=== PATIENT | female | born 1985 | race African-American/Black ===

== ENCOUNTER 2016-10-25 18:24 | Emergency (ER) | payer SELFPAY ==
[~2016-10-25] VITALS: Ht 154.9 cm; Wt 61.2 kg
[2016-10-25] MEDS ORDERED: ONDANSETRON PF 4 MG/2 ML VIAL. IV ONE (19:15)
[2016-10-25] MEDS ORDERED: MORPHINE SULFATE 10 MG/ML VIAL. IV ONE (19:15)
[2016-10-25] MEDS ORDERED: FAMOTIDINE 20 MG/2 ML VIAL IVP ONE (19:15)
[2016-10-25] MEDS ORDERED: IV NORMAL SALINE 1000ML BAG 1,000 ML IV ONE (19:15)
[2016-10-25 19:16] LABS: BASO # 0.1 x10^3/uL (0.0-0.2); BASO % 1 % (0-3); EOS % 3 % (0-3); HEMATOCRIT 40.8 % (36.0-47.0); HEMOGLOBIN 13.8 g/dL (12.0-15.5); LYMPH # 1.9 x10^3/uL (1.0-4.8); LYMPH % 26 % (24-48); MEAN CORPUSCULAR HEMOGLOBIN 33 pg (25-35); MEAN CORPUSCULAR HGB CONC 34 g/dL (31-37); MEAN CORPUSCULAR VOLUME 98 fL (79-100); MONO % 4 % (0-9); NEUT % 66 % (31-73); PLATELET COUNT 354 x10^3/uL (140-400); RED BLOOD COUNT 4.17 x10^6/uL (3.50-5.40); RED CELL DISTRIBUTION WIDTH 12.9 % (11.5-14.5); WHITE BLOOD COUNT 7.4 x10^3/uL (4.0-11.0)
[2016-10-25 19:26] LABS: CALCIUM 8.7 mg/dL (8.5-10.1); CREATININE 0.9 mg/dL (0.6-1.0); GFR 89.6; POTASSIUM 3.7 mmol/L (3.5-5.1)
[2016-10-25 19:32] LABS: ALBUMIN 3.5 g/dL (3.4-5.0); TOTAL BILIRUBIN 0.3 mg/dL (0.2-1.0); TOTAL PROTEIN 6.9 g/dL (6.4-8.2)
[2016-10-25 19:44] LABS: BILIRUBIN,URINE NEGATIVE (NEG); GLUCOSE,URINE NEGATIVE (NEG); NITRITE,URINE NEGATIVE (NEG); PROTEIN,URINE NEGATIVE (NEG-TRACE); UROBILINOGEN,URINE 0.2 mg/dL (0.2 mg/dL)
--- NOTE | 2016-10-25 19:52 | PHYS DOC ---
Past Medical History Past Medical History: Anxiety, Other Additional Past Medical Histor: CHRONIC BACK Past Surgical History: Appendectomy, Cholecystectomy Additional Past Surgical Histo: cyst removed from ovary Alcohol Use: None Drug Use: None Adult General Chief Complaint Chief Complaint: ABDOMINAL PAIN HPI HPI Patient is a 30 year old female with history of cholecystectomy, appendectomy, who presents today with nausea vomiting and diarrhea that began 3 days ago. Patient is also complaining of generalized abdominal pain. Patient denies any hematemesis or melena. Denies any fever. Denies any urgency frequency or dysuria. Review of Systems Review of Systems Constitutional: Denies fever or chills [] Eyes: Denies change in visual acuity, redness, or eye pain [] HENT: Denies nasal congestion or sore throat [] Respiratory: Denies cough or shortness of breath [] Cardiovascular: No additional information not addressed in HPI [] GI: abdominal pain, nausea, vomiting, diarrhea [] : Denies dysuria or hematuria [] Musculoskeletal: Denies back pain or joint pain [] Integument: Denies rash or skin lesions [] Neurologic: Denies headache, focal weakness or sensory changes [] Endocrine: Denies polyuria or polydipsia [] Current Medications Current Medications Current Medications Medications (Trade) Dose Ordered Sig/Jaky Start Time Stop Time Status Last Admin Dose Admin Azithromycin (Zithromax) 1,000 mg 1X ONCE 10/25/16 20:15 10/25/16 20:16 DC Ceftriaxone Sodium (Rocephin Im) 250 mg 1X ONCE 10/25/16 20:30 10/25/16 20:31 DC Famotidine (Pepcid) 20 mg 1X ONCE 10/25/16 19:15 10/25/16 19:16 DC 10/25/16 19:20 20 MG Metronidazole (Flagyl) 2,000 mg 1X ONCE 10/25/16 20:15 10/25/16 20:16 DC Morphine Sulfate 5 mg 1X ONCE 10/25/16 19:15 10/25/16 19:16 DC 10/25/16 19:22 5 MG Ondansetron HCl (Zofran) 4 mg 1X ONCE 10/25/16 19:15 10/25/16 19:16 DC 10/25/16 19:19 4 MG Sodium Chloride 1,000 ml @ 1,000 mls/hr 1X ONCE 10/25/16 19:15 10/25/16 20:14 DC 10/25/16 19:23 1,000 MLS/HR Allergies Allergies Allergies Coded Allergies Type Severity Reaction Last Updated Verified No Known Drug Allergies 02/18/14 No Physical Exam Physical Exam Constitutional: Well developed, well nourished, no acute distress, non-toxic appearance. [] HENT: Normocephalic, atraumatic, bilateral external ears normal, oropharynx moist, no oral exudates, nose normal. [] Eyes: PERRLA, EOMI, conjunctiva normal, no discharge. [] Neck: Normal range of motion, no tenderness, supple, no stridor. [] Cardiovascular:Heart rate regular rhythm, no murmur [] Lungs & Thorax: Bilateral breath sounds clear to auscultation [] Abdomen: Old healed midline surgical scar. Bowel sounds normal, soft, no tenderness, no masses, no pulsatile masses. [] Skin: Warm, dry, no erythema, no rash. [] Back: No tenderness, no CVA tenderness. [] Extremities: No tenderness, no cyanosis, no clubbing, ROM intact, no edema. [] Neurologic: Alert and oriented X 3, normal motor function, normal sensory function, no focal deficits noted. [] Psychologic: Affect normal, judgement normal, mood normal. [] Current Patient Data Vital Signs Vital Signs Date Time Temp Pulse Resp B/P (MAP) Pulse Ox O2 Delivery O2 Flow Rate FiO2 10/25/16 19:22 18 97 Room Air 10/25/16 18:41 98.6 76 127/82 (97) 98.6 Lab Values Laboratory Tests Test 10/25/16 18:37 10/25/16 19:05 Urine Collection Type Unknown Urine Color Yellow Urine Clarity Turbid Urine pH 7.0 Urine Specific [place] 1.025 Urine Protein Negative mg/dL (NEG-TRACE) Urine Glucose (UA) Negative mg/dL (NEG) Urine Ketones (Stick) Negative mg/dL (NEG) Urine Blood Negative (NEG) Urine Nitrite Negative (NEG) Urine Bilirubin Negative (NEG) Urine Urobilinogen Dipstick 0.2 mg/dL (0.2 mg/dL) Urine Leukocyte Esterase Moderate (NEG) Urine RBC 0 /HPF (0-2) Urine WBC 1-4 /HPF (0-4) Urine Squamous Epithelial Cells Mod /LPF Urine Amorphous Sediment Present /HPF Urine Bacteria Mod /HPF (0-FEW) Urine Mucus Mod /LPF Urine Trichomonas Present White Blood Count 7.4 x10^3/uL (4.0-11.0) Red Blood Count 4.17 x10^6/uL (3.50-5.40) Hemoglobin 13.8 g/dL (12.0-15.5) Hematocrit 40.8 % (36.0-47.0) Mean Corpuscular Volume 98 fL (79-100) Mean Corpuscular Hemoglobin 33 pg (25-35) Mean Corpuscular Hemoglobin Concent 34 g/dL (31-37) Red Cell Distribution Width 12.9 % (11.5-14.5) Platelet Count 354 x10^3/uL (140-400) Neutrophils (%) (Auto) 66 % (31-73) Lymphocytes (%) (Auto) 26 % (24-48) Monocytes (%) (Auto) 4 % (0-9) Eosinophils (%) (Auto) 3 % (0-3) Basophils (%) (Auto) 1 % (0-3) Neutrophils # (Auto) 4.9 x10^3uL (1.8-7.7) Lymphocytes # (Auto) 1.9 x10^3/uL (1.0-4.8) Monocytes # (Auto) 0.3 x10^3/uL (0.0-1.1) Eosinophils # (Auto) 0.2 x10^3/uL (0.0-0.7) Basophils # (Auto) 0.1 x10^3/uL (0.0-0.2) Sodium Level 142 mmol/L (136-145) Potassium Level 3.7 mmol/L (3.5-5.1) Chloride Level 107 mmol/L (98-107) Carbon Dioxide Level 28 mmol/L (21-32) Anion Gap 7 (6-14) Blood Urea Nitrogen 15 mg/dL (7-20) Creatinine 0.9 mg/dL (0.6-1.0) Estimated GFR (Cockcroft-Gault) 89.6 BUN/Creatinine Ratio 17 (6-20) Glucose Level 132 mg/dL (70-99) H Calcium Level 8.7 mg/dL (8.5-10.1) Total Bilirubin 0.3 mg/dL (0.2-1.0) Aspartate Amino Transferase (AST) 14 U/L (15-37) L Alanine Aminotransferase (ALT) 26 U/L (14-59) Alkaline Phosphatase 70 U/L (46-116) Total Protein 6.9 g/dL (6.4-8.2) Albumin 3.5 g/dL (3.4-5.0) Albumin/Globulin Ratio 1.0 (1.0-1.7) Lipase 172 U/L (73-393) Laboratory Tests 10/25/16 19:05 Laboratory Tests 10/25/16 19:05 EKG EKG [] Radiology/Procedures Radiology/Procedures [] Course & Med Decision Making Course & Med Decision Making Pertinent Labs and Imaging studies reviewed. (See chart for details) Patient is in the ED with complaints of abdominal pain generalized in nature with nausea vomiting and diarrhea that began 3 days ago. CBC CMP lipase with no acute findings. Symptoms are likely viral. Negative urine hCG, urine positive for Trichomonas and UTI. Patient was given Flagyl Rocephin and azithromycin in the ED. Educated onset sex practices especially the need to use protection and contact her partners let them know she was treated for STDs and ask them to seek treatment too, discharged with Bactrim for UTI. Discharged with promethazine and instructed to push fluids and maintain good hand hygiene. Follow-up with PCP in 1-2 weeks. Provided return precautions and discharged in stable condition. Dragon Disclaimer Dragon Disclaimer This electronic medical record was generated, in whole or in part, using a voice recognition dictation system. Departure Departure Impression: Primary Impression: Nausea and vomiting Additional Impressions: Diarrhea Urinary tract infection Trichomonas vaginitis Disposition: 01 HOME, SELF-CARE Condition: STABLE Referrals: AURA SAINI MD (PCP) Follow-up in one week Patient Instructions: Diarrhea, Nausea and Vomiting, [id number], Trichomoniasis, Urinary Tract Infection Additional Instructions: You were seen for nausea vomiting and diarrhea. This is typically a viral illness. You tested positive for Trichomonas, this is an STD. You need to contact all your sex partners, let them know you were treated for Trichomonas and let them seek treatment. Complete your antibiotics for urinary tract infection. Push fluids and maintain good hand hygiene. Scripts Sulfamethoxazole/Trimethoprim (BACTRIM DS TABLET) 1 Each Tablet 1 TAB PO BID, #10 TAB Prov: DEE DEE SARABIA APRN 10/25/16 Promethazine Hcl (PROMETHAZINE HCL) 25 Mg Tablet 1 TAB PO PRN Q6HRS, #20 TAB Prov: DEE DEE SARABIA APRN 10/25/16 Problem Qualifiers Primary Impression: Nausea and vomiting Vomiting type: unspecified Vomiting Intractability: non-intractable Qualified Codes: R11.2 - Nausea with vomiting, unspecified Additional Impressions: Diarrhea Diarrhea type: unspecified type Qualified Codes: R19.7 - Diarrhea, unspecified Urinary tract infection Urinary tract infection type: acute cystitis Hematuria presence: without hematuria Qualified Codes: N30.00 - Acute cystitis without hematuria DEE DEE SARABIA APRN October 25, 2016 19:52
[2016-10-25 20:03] LABS: BACTERIA,URINE MOD /HPF (0-FEW); RBC,URINE 0 /HPF (0-2); SQUAMOUS EPITHELIAL CELL,UR MOD /LPF; TRICHOMONAS,URINE PRESENT
[2016-10-25] MEDS ORDERED: metroNIDAZOLE 500 MG TABLET PO ONE (20:15)
[2016-10-25] MEDS ORDERED: AZITHROMYCIN 250 MG TABLET. PO ONE (20:15)
[2016-10-25 20:30] VITALS: BP 100/65
[2016-10-25] MEDS ORDERED: cefTRIAXone IM 250 MG VIAL IM ONE (20:30)
[2016-10-25] MEDS ORDERED: PROM25TA10 PO (20:48)
[2016-10-25] MEDS ORDERED: SULF1TAB24 PO (20:48)
== END 2016-10-25 21:05 | disposition home or self-care (01) ==
LOC: ER 18:24
DX: R11.2 Nausea with vomiting, unspecified (principal); R19.7 Diarrhea, unspecified; N30.00 Acute cystitis without hematuria; A59.01 Trichomonal vulvovaginitis; F41.9 Anxiety disorder, unspecified; G89.29 Other chronic pain; Z90.49 Acquired absence of other specified parts of digestive tract
CPT/HCPCS: 36415; 80053; 81001; 81025; 83690; 85027; 96361; 96372; 96374; 96375; 99285; J0696; J2270; J2405; J7030; Q0144; S0028

== ENCOUNTER 2016-11-14 20:30 | Emergency (ER) | payer SELFPAY ==
[~2016-11-14] VITALS: Ht 154.9 cm; Wt 61.2 kg
[~2016-11-14 20:30] MED LIST: PROM25TA10 PO; SULF1TAB24 PO
[2016-11-14 20:49] VITALS: BP 111/70
[2016-11-14] MEDS ORDERED: HYDR-79 PO (21:20)
[2016-11-14] MEDS ORDERED: SULF1TAB24 PO (21:20)
--- NOTE | 2016-11-14 21:20 | PHYS DOC ---
Past Medical History Past Medical History: Anxiety, Other Additional Past Medical Histor: CHRONIC BACK Past Surgical History: Appendectomy, Cholecystectomy Additional Past Surgical Histo: cyst removed from ovary Alcohol Use: None Drug Use: None Adult General Chief Complaint Chief Complaint: SKIN RASH/ABSCESS HPI HPI Patient is a 30 year old female with history of anxiety who presents with a swollen area on the left flank region that she noted this morning. Patient denies any fever. Denies any drainage from the area. Review of Systems Review of Systems Constitutional: Denies fever or chills [] Musculoskeletal: Denies back pain or joint pain [] Integument: Swelling to the left flank Neurologic: Denies headache, focal weakness or sensory changes [] Endocrine: Denies polyuria or polydipsia [] Allergies Allergies Allergies Coded Allergies Type Severity Reaction Last Updated Verified No Known Drug Allergies 02/18/14 No Physical Exam Physical Exam Constitutional: Well developed, well nourished, no acute distress, non-toxic appearance. [] Skin: Left flank region has an indurated area approximately 5 x 5 cm. The area is not warm but it is tender to touch but not fluctuant. There is no erythema to the area. Back: No tenderness, no CVA tenderness. [] Extremities: No tenderness, no cyanosis, no clubbing, ROM intact, no edema. [] Neurologic: Alert and oriented X 3, normal motor function, normal sensory function, no focal deficits noted. [] Psychologic: Affect normal, judgement normal, mood normal. [] Current Patient Data Vital Signs Vital Signs Date Time Temp Pulse Resp B/P (MAP) Pulse Ox O2 Delivery O2 Flow Rate FiO2 11/14/16 20:49 98.3 67 18 100 Room Air 98.3 EKG EKG [] Radiology/Procedures Radiology/Procedures [] Course & Med Decision Making Course & Med Decision Making Pertinent Labs and Imaging studies reviewed. (See chart for details) Patient has a swollen area on the left flank region. It's hard to tell if this is an abscess or hematoma or lipoma. She has no injury to the area. The area is swollen and tender to touch but not fluctuant. There is no erythema to the area. Her tetanus is up-to-date. The differentials including abscess, hematoma or contusion, lipoma, i went ahead and covered the worst of the possibilities which is an abscess. The patient and Bactrim for 10 days. Instructed to apply warm compresses to the area. Instructed her to follow-up with the primary care doctor in 10 days if the area does not go down or clear. Tetanus is up to date. [place] Disclaimer Sylvia Disclaimer This electronic medical record was generated, in whole or in part, using a voice recognition dictation system. Departure Departure Impression: Primary Impression: Abscess of muscle of back Disposition: 01 HOME, SELF-CARE Condition: STABLE Referrals: AURA SAINI MD (PCP) Follow-up with your doctor in 10-14 days if symptoms continue Patient Instructions: Abscess Additional Instructions: You were seen for a swollen area on the left flank region. Its hard to tell if this is an abscess, hematoma, or lipoma which is a fatty tumor. We put you on antibiotics to cover you for the worst possibility which could be an abscess. Apply warm compresses to the area twice a day. Take the prescribed medicines as ordered. Follow-up with your doctor in 10 days if symptoms continue. Scripts Hydrocodone/Ibuprofen (HYDROCODONE-IBUPROFEN 7.5-200 ) 1 Each Tablet 1 TAB PO PRN Q6HRS Y for PAIN, #12 TAB 0 Refills Prov: DEE DEE SARABIA APRN 11/14/16 Sulfamethoxazole/Trimethoprim (BACTRIM DS TABLET) 1 Each Tablet 1 TAB PO BID, #20 TAB Prov: DEE DEE SARABIA APRN 11/14/16 DEE DEE SARABIA APRN Nov 14, 2016 21:20
== END 2016-11-14 21:34 | disposition home or self-care (01) ==
LOC: ER 20:30
DX: L02.212 Cutaneous abscess of back [any part, except buttock and flank] (principal); F41.9 Anxiety disorder, unspecified; G89.29 Other chronic pain; Z90.49 Acquired absence of other specified parts of digestive tract
CPT/HCPCS: 99283

== ENCOUNTER 2017-01-16 17:47 | Emergency (ER) | payer SELFPAY ==
[~2017-01-16] VITALS: Ht 154.9 cm; Wt 61.2 kg
[~2017-01-16 17:47] MED LIST changes: +HYDR-79 PO
[2017-01-16 18:30] VITALS: BP 105/76
[2017-01-16] MEDS ORDERED: ONDANSETRON PF 4 MG/2 ML VIAL. IV ONE (18:45)
[2017-01-16] MEDS ORDERED: IV NORMAL SALINE 1000ML BAG 1,000 ML IV SCH (18:45)
[2017-01-16] MEDS ORDERED: fentaNYL PF VIAL 100 MCG/2 ML VIAL IV PRN (18:45)
--- NOTE | 2017-01-16 18:53 | PHYS DOC ---
Past Medical History Past Medical History: Anxiety, Other Additional Past Medical Histor: chronic back pain Past Surgical History: Appendectomy, Cholecystectomy Additional Past Surgical Histo: cyst removed from ovary Alcohol Use: None Drug Use: None Adult General Chief Complaint Chief Complaint: CHEST WALL PAIN HPI HPI Patient is a 31 year old female who presents with complaint of left-sided chest wall pain. Patient states her symptoms started 3 days ago and have been constant. Patient states that she has been having coughing over the past week and started developing the symptoms a few days afterward. Patient states that the pain is sharp and located along the left front portion of her chest. Patient states that she has had a fever with her symptoms, stating that her temperature was 101F 2 days ago. The patient states she has been taking over- the-counter Tylenol and cold medicine with no relief in symptoms. Patient states that she has had a productive cough of yellow sputum. Patient denies any history of heart or lung problems and is not currently on any medications. Patient denies any history of clotting disorders or heart problems and young family members. The patient denies any nausea currently but states that she has had vomiting which happens after a coughing fit. Patient rates her pain currently is 8 out of 10. Patient states that the pain remains localized in her left anterior chest. Review of Systems Review of Systems Constitutional: Denies fever or chills [] Eyes: Denies change in visual acuity, redness, or eye pain [] HENT: Denies nasal congestion or sore throat [] Respiratory: Shortness of breath, cough [] Cardiovascular: Chest pain, denies edema [] GI: Denies abdominal pain, nausea, vomiting, bloody stools or diarrhea [] : Denies dysuria or hematuria [] Musculoskeletal: Denies back pain or joint pain [] Integument: Denies rash or skin lesions [] Neurologic: Denies headache, focal weakness or sensory changes [] Current Medications Current Medications Current Medications Medications (Trade) Dose Ordered Sig/Jaky Start Time Stop Time Status Last Admin Dose Admin Fentanyl Citrate (Fentanyl 2ml Vial) 50 mcg PRN Q15MIN PRN 01/16/17 18:45 01/17/17 18:44 01/16/17 19:25 50 MCG Ondansetron HCl (Zofran) 4 mg 1X ONCE 01/16/17 18:45 01/16/17 18:49 DC 01/16/17 19:25 4 MG Sodium Chloride 1,000 ml @ 1,000 mls/hr Q1H 01/16/17 18:45 01/16/17 19:44 DC 01/16/17 19:26 1,000 MLS/HR Allergies Allergies Allergies Coded Allergies Type Severity Reaction Last Updated Verified No Known Drug Allergies 02/18/14 No Physical Exam Physical Exam Constitutional: Well developed, well nourished, no acute distress, non-toxic appearance. [] HENT: Normocephalic, atraumatic, bilateral external ears normal, oropharynx moist, no oral exudates, nose normal. [] Eyes: PERRLA, EOMI, conjunctiva normal, no discharge. [] Neck: Normal range of motion, no tenderness, supple, no stridor. [] Cardiovascular:Heart rate regular rhythm, no murmur [] Lungs & Thorax: Breath sounds clear bilaterally, left anterior chest wall tenderness to palpation causing reproducible pain. [] Abdomen: Bowel sounds normal, soft, no tenderness, no masses, no pulsatile masses. [] Skin: Warm, dry, no erythema, no rash. [] Back: No tenderness, no CVA tenderness. [] Extremities: No tenderness, no cyanosis, no clubbing, ROM intact, no edema. [] Neurologic: Alert and oriented X 3, normal motor function, normal sensory function, no focal deficits noted. [] Current Patient Data Vital Signs Vital Signs Date Time Temp Pulse Resp B/P (MAP) Pulse Ox O2 Delivery O2 Flow Rate FiO2 01/16/17 19:25 18 96 Room Air 01/16/17 18:00 98.0 68 111/65 (80) 98.0 Lab Values Laboratory Tests Test 01/16/17 17:19 01/16/17 17:55 POC Urine HCG, Qualitative Hcg negative (Negative) White Blood Count 6.0 x10^3/uL (4.0-11.0) Red Blood Count 4.37 x10^6/uL (3.50-5.40) Hemoglobin 14.5 g/dL (12.0-15.5) Hematocrit 42.4 % (36.0-47.0) Mean Corpuscular Volume 97 fL (79-100) Mean Corpuscular Hemoglobin 33 pg (25-35) Mean Corpuscular Hemoglobin Concent 34 g/dL (31-37) Red Cell Distribution Width 12.8 % (11.5-14.5) Platelet Count 361 x10^3/uL (140-400) Neutrophils (%) (Auto) 42 % (31-73) Lymphocytes (%) (Auto) 42 % (24-48) Monocytes (%) (Auto) 7 % (0-9) Eosinophils (%) (Auto) 8 % (0-3) H Basophils (%) (Auto) 1 % (0-3) Neutrophils # (Auto) 2.5 x10^3uL (1.8-7.7) Lymphocytes # (Auto) 2.5 x10^3/uL (1.0-4.8) Monocytes # (Auto) 0.4 x10^3/uL (0.0-1.1) Eosinophils # (Auto) 0.5 x10^3/uL (0.0-0.7) Basophils # (Auto) 0.1 x10^3/uL (0.0-0.2) D-Dimer (Mariah) 0.27 ug/mlFEU (0.00-0.50) Urine Collection Type Unknown Urine Color Yellow Urine Clarity Clear Urine pH 6.5 Urine Specific [place] 1.010 Urine Protein Negative mg/dL (NEG-TRACE) Urine Glucose (UA) Negative mg/dL (NEG) Urine Ketones (Stick) Negative mg/dL (NEG) Urine Blood Negative (NEG) Urine Nitrite Negative (NEG) Urine Bilirubin Negative (NEG) Urine Urobilinogen Dipstick 0.2 mg/dL (0.2 mg/dL) Urine Leukocyte Esterase Trace (NEG) Urine RBC 0 /HPF (0-2) Urine WBC 1-4 /HPF (0-4) Urine Squamous Epithelial Cells Mod /LPF Urine Bacteria Few /HPF (0-FEW) Urine Trichomonas Present Sodium Level 138 mmol/L (136-145) Potassium Level 4.2 mmol/L (3.5-5.1) Chloride Level 102 mmol/L (98-107) Carbon Dioxide Level 25 mmol/L (21-32) Anion Gap 11 (6-14) Blood Urea Nitrogen 12 mg/dL (7-20) Creatinine 0.8 mg/dL (0.6-1.0) Estimated GFR (Cockcroft-Gault) 101.9 BUN/Creatinine Ratio 15 (6-20) Glucose Level 94 mg/dL (70-99) Calcium Level 8.8 mg/dL (8.5-10.1) Magnesium Level 2.0 mg/dL (1.8-2.4) Total Bilirubin 0.4 mg/dL (0.2-1.0) Aspartate Amino Transferase (AST) 11 U/L (15-37) L Alanine Aminotransferase (ALT) 19 U/L (14-59) Alkaline Phosphatase 72 U/L (46-116) Creatine Kinase 68 U/L (26-192) Creatine Kinase MB (Mass) < 0.5 ng/mL (0.0-3.6) Creatine Kinase MB Relative Index 0.7 % (0-4) Troponin I Quantitative < 0.017 ng/mL (0.000-0.055) UF-Yae-N-Type Natriuretic Peptide 21 pg/mL (0-124) Total Protein 6.9 g/dL (6.4-8.2) Albumin 3.6 g/dL (3.4-5.0) Albumin/Globulin Ratio 1.1 (1.0-1.7) Urine Opiates Screen Neg (NEG) Urine Methadone Screen Neg (NEG) Urine Barbiturates Neg (NEG) Urine Phencyclidine Screen Neg (NEG) Urine Amphetamine/Methamphetamine Neg (NEG) Urine Benzodiazepines Screen Neg (NEG) Urine Cocaine Screen Neg (NEG) Urine Cannabinoids Screen Pos (NEG) Urine Ethyl Alcohol Neg (NEG) Laboratory Tests 01/16/17 17:55 Laboratory Tests 01/16/17 17:55 EKG EKG Interpreted by me: Heart rate 56, sinus rhythm, normal axis, normal intervals, no acute ST/T-wave abnormalities present [] Radiology/Procedures Radiology/Procedures One view AP chest x-ray interpreted by me: No infiltrate, no effusions, normal cardiac silhouette [] Course & Med Decision Making Course & Med Decision Making Pertinent Labs and Imaging studies reviewed. (See chart for details) Patient was given IV fentanyl and IV fluids in the emergency department. The patient's lab work and imaging did not show evidence of acute cardiopulmonary pathology. Due to persistence of respiratory symptoms, a bacterial bronchitis cannot be ruled out at this time and patient will be started on azithromycin for treatment. The patient will also be treated with ibuprofen and Flexeril for suspected intercostal muscle strain from coughing. Advise follow-up in 3-5 days with primary doctor if symptoms are not improving and return to emergency department for any worsening symptoms. Patient voiced understanding and in agreement with treatment plan. Dragon Disclaimer Dragon Disclaimer This electronic medical record was generated, in whole or in part, using a voice recognition dictation system. Departure Departure Impression: Primary Impression: Bronchitis Additional Impression: Intercostal muscle strain Disposition: 01 HOME, SELF-CARE Condition: IMPROVED Referrals: AURA SAINI MD (PCP) Patient Instructions: Bronchitis, Chest Wall Pain Additional Instructions: Follow-up to primary doctor in 3-5 days for reevaluation. Return to the emergency department for any worsening symptoms. Scripts Cyclobenzaprine Hcl (CYCLOBENZAPRINE HCL) 10 Mg Tablet 1 TAB PO TID Y for MUSCLE SPASMS, #30 TAB Prov: CHELE BLOUNT MD 01/16/17 Ibuprofen (IBUPROFEN) 600 Mg Tablet 600 MG PO Q6HRS Y for INFLAMMATION, #30 TAB Prov: CHELE BLOUNT MD 01/16/17 Azithromycin (AZITHROMYCIN TABLET) 250 Mg Tablet 1 PKG PO UD, #6 TAB Prov: CHELE BLOUNT MD 01/16/17 Problem Qualifiers Additional Impression: Intercostal muscle strain Encounter type: initial encounter Qualified Codes: S29.011A - Strain of muscle and tendon of front wall of thorax, initial encounter CHELE BLOUNT MD Jan 16, 2017 18:53
[2017-01-16 18:58] LABS: BASO # 0.1 x10^3/uL (0.0-0.2); BASO % 1 % (0-3); EOS % 8 % (0-3); HEMATOCRIT 42.4 % (36.0-47.0); HEMOGLOBIN 14.5 g/dL (12.0-15.5); LYMPH # 2.5 x10^3/uL (1.0-4.8); LYMPH % 42 % (24-48); MEAN CORPUSCULAR HEMOGLOBIN 33 pg (25-35); MEAN CORPUSCULAR HGB CONC 34 g/dL (31-37); MEAN CORPUSCULAR VOLUME 97 fL (79-100); MONO % 7 % (0-9); NEUT % 42 % (31-73); PLATELET COUNT 361 x10^3/uL (140-400); RED BLOOD COUNT 4.37 x10^6/uL (3.50-5.40); RED CELL DISTRIBUTION WIDTH 12.8 % (11.5-14.5)
[2017-01-16 19:00] LABS: BILIRUBIN,URINE NEGATIVE (NEG); GLUCOSE,URINE NEGATIVE (NEG); NITRITE,URINE NEGATIVE (NEG); PH,URINE 6.5; PROTEIN,URINE NEGATIVE (NEG-TRACE); UROBILINOGEN,URINE 0.2 mg/dL (0.2 mg/dL)
[2017-01-16 19:06] LABS: BARBITURATES NEG (NEG); BENZODIAZEPINES NEG (NEG); CANNABINOIDS POS (NEG); COCAINE NEG (NEG); METHADONE NEG (NEG); OPIATES NEG (NEG); PHENCYCLIDINE NEG (NEG)
[2017-01-16 19:11] LABS: CALCIUM 8.8 mg/dL (8.5-10.1); CREATININE 0.8 mg/dL (0.6-1.0); GFR 101.9; POTASSIUM 4.2 mmol/L (3.5-5.1)
[2017-01-16 19:13] LABS: BACTERIA,URINE FEW /HPF (0-FEW); RBC,URINE 0 /HPF (0-2); SQUAMOUS EPITHELIAL CELL,UR MOD /LPF; TRICHOMONAS,URINE PRESENT
[2017-01-16 19:17] LABS: ALBUMIN 3.6 g/dL (3.4-5.0); ALBUMIN/GLOBULIN RATIO 1.1 (1.0-1.7); TOTAL BILIRUBIN 0.4 mg/dL (0.2-1.0); TOTAL PROTEIN 6.9 g/dL (6.4-8.2)
[2017-01-16 19:23] LABS: CKMB MASS < 0.5 ng/mL (0.0-3.6); CREATINE KINASE 68 U/L (26-192)
[2017-01-16] MEDS ORDERED: AZIT250T6 PO (19:55)
[2017-01-16] MEDS ORDERED: IBUP-1007 PO (19:55)
[2017-01-16] MEDS ORDERED: CYCL10TA2 PO (19:55)
--- NOTE | 2017-01-17 06:41 | EKG ---
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
--- NOTE | 2017-01-17 07:45 | RAD ---
Chest, 2 views, 01/16/2017: History: Left chest wall pain Comparison is made to a study from 10/13/2011. The heart size and pulmonary vascularity are normal. No pulmonary infiltrates are seen. There is unchanged blunting of the right lateral costophrenic angle compatible with scarring. No pleural fluid is seen. There is a mild thoracic scoliosis. IMPRESSION: No acute cardiopulmonary abnormality is detected.
== END 2017-01-16 20:07 | disposition home or self-care (01) ==
LOC: ER 17:47
DX: S29.011A Strain of muscle and tendon of front wall of thorax, initial encounter (principal); J40 Bronchitis, not specified as acute or chronic; G89.29 Other chronic pain; F41.9 Anxiety disorder, unspecified; X58.XXXA Exposure to other specified factors, initial encounter; Y93.89 Activity, other specified; Y99.8 Other external cause status; Y92.89 Other specified places as the place of occurrence of the external cause
CPT/HCPCS: 36415; 71020; 80053; 80307; 81001; 81025; 82553; 83735; 83880; 84484; 85025; 85379; 87086; 93005; 96361; 96374; 96375; 99285; J2405; J3010; J7030; G0479

== ENCOUNTER 2017-06-07 15:56 | Emergency (ER) | payer OTHER ==
[2017-06-07 17:11] LABS: INFLUENZA A PATIENT NEGATIVE (NEGATIVE); INFLUENZA B PATIENT NEGATIVE (NEGATIVE); OBC FLU VALID
== END 2017-06-07 18:15 | disposition home or self-care (01) ==
LOC: ER 15:56
DX: J20.9 Acute bronchitis, unspecified (principal); F41.9 Anxiety disorder, unspecified; G89.29 Other chronic pain; Z87.891 Personal history of nicotine dependence; Z90.49 Acquired absence of other specified parts of digestive tract
CPT/HCPCS: 87804; 87804-59; 99284

== ENCOUNTER 2017-06-13 19:08 | Emergency (ER) | payer OTHER ==
[2017-06-13] MEDS: ACETAMINOPHEN 500 MG TABLET PO (22:15)
== END 2017-06-13 22:16 | disposition home or self-care (01) ==
LOC: ER 19:08
DX: S00.83XA Contusion of other part of head, initial encounter (principal); S10.93XA Contusion of unspecified part of neck, initial encounter; G89.29 Other chronic pain; F41.9 Anxiety disorder, unspecified; Z90.49 Acquired absence of other specified parts of digestive tract; V43.52XA Car driver injured in collision with other type car in traffic accident, initial encounter; Y93.I9 Activity, other involving external motion; Y92.481 Parking lot as the place of occurrence of the external cause; Y99.8 Other external cause status
CPT/HCPCS: 70450; 72125; 99284-25

== ENCOUNTER 2017-07-19 20:47 | Emergency (ER) | payer OTHER ==
[2017-07-19 22:08] LABS: URINE HCG POC HCG NEGATIVE (Negative)
[2017-07-19 22:12] LABS: BILIRUBIN,URINE NEGATIVE (NEG); CLARITY,URINE CLEAR; COLOR,URINE YELLOW; GLUCOSE,URINE NEGATIVE (NEG); NITRITE,URINE NEGATIVE (NEG); PH,URINE 5.5; PROTEIN,URINE NEGATIVE (NEG-TRACE); UROBILINOGEN,URINE 0.2 mg/dL (0.2 mg/dL)
[2017-07-19 22:18] LABS: BACTERIA,URINE FEW /HPF (0-FEW); RBC,URINE 0 /HPF (0-2); SQUAMOUS EPITHELIAL CELL,UR MOD /LPF
[2017-07-19] MEDS: KETOROLAC 60 MG/2 ML INJ. IM ×2 (22:50)
[2017-07-19] MEDS ORDERED: LIDOCAINE 1% PF 2 ML VIAL. ×2 (23:21)
[2017-07-19] MEDS: metroNIDAZOLE 500 MG TABLET PO ×2 (23:31)
[2017-07-19] MEDS: AZITHROMYCIN 250 MG TABLET. PO ×2 (23:31)
[2017-07-19] MEDS: cefTRIAXone IM 250 MG VIAL IM ×2 (23:31)
[2017-07-20] MEDS: HYDROcodone/APAP 5/325MG 1 TAB TABLET PO ×2 (00:18)
[2017-07-23 16:26] LABS: CHLAMYDIA PROBE Negative (Negative); GC PROBE Negative (Negative)
== END 2017-07-20 00:43 | disposition home or self-care (01) ==
LOC: ER 07-20 00:43
DX: N72 Inflammatory disease of cervix uteri (principal); G89.29 Other chronic pain; Z90.49 Acquired absence of other specified parts of digestive tract
CPT/HCPCS: 76830; 76856; 81001; 81025; 87491; 87591; 96372; 99285-25; J0696; J1885; Q0111; Q0144

== ENCOUNTER 2017-09-26 22:05 | Emergency (ER) | payer OTHER ==
[2017-09-26 23:32] LABS: ADD MAN DIFF? NO
[2017-09-26 23:34] LABS: BASO # 0.1 x10^3/uL (0.0-0.2); BASO % 1 % (0-3); EOS # 0.4 x10^3/uL (0.0-0.7); EOS % 5 % (0-3); HEMATOCRIT 38.7 % (36.0-47.0); HEMOGLOBIN 13.7 g/dL (12.0-15.5); LYMPH % 42 % (24-48); MEAN CORPUSCULAR HEMOGLOBIN 35 pg (25-35); MEAN CORPUSCULAR HGB CONC 35 g/dL (31-37); MEAN CORPUSCULAR VOLUME 98 fL (79-100); MONO # 0.3 x10^3/uL (0.0-1.1); MONO % 5 % (0-9); NEUT # 3.4 x10^3uL (1.8-7.7); NEUT % 47 % (31-73); PLATELET COUNT 361 x10^3/uL (140-400); RED BLOOD COUNT 3.97 x10^6/uL (3.50-5.40); WHITE BLOOD COUNT 7.2 x10^3/uL (4.0-11.0)
[2017-09-26 23:35] LABS: BILIRUBIN,URINE NEGATIVE (NEG); CLARITY,URINE CLEAR; COLOR,URINE YELLOW; GLUCOSE,URINE NEGATIVE (NEG); NITRITE,URINE NEGATIVE (NEG); PH,URINE 5.5; PROTEIN,URINE NEGATIVE (NEG-TRACE)
[2017-09-26 23:41] LABS: ANION GAP 9 (6-14); BLOOD UREA NITROGEN 14 mg/dL (7-20); BUN/CREATININE RATIO 13 (6-20); CALCIUM 8.4 mg/dL (8.5-10.1); CARBON DIOXIDE 25 mmol/L (21-32); CHLORIDE 108 mmol/L (98-107); CREATININE 1.1 mg/dL (0.6-1.0); GFR 70.6; GLUCOSE 118 mg/dL (70-99); POTASSIUM 3.5 mmol/L (3.5-5.1); SODIUM 142 mmol/L (136-145)
[2017-09-26 23:42] LABS: BACTERIA,URINE MANY /HPF (0-FEW); SQUAMOUS EPITHELIAL CELL,UR MANY /LPF
[2017-09-26] MEDS ORDERED: CONTRAST GIVEN MC (23:45)
[2017-09-26] MEDS: KETOROLAC 30 MG/ML INJ. IV (23:45)
[2017-09-26] MEDS: ONDANSETRON PF 4 MG/2 ML VIAL. IV (23:45)
[2017-09-26] MEDS: IV NORMAL SALINE 1000ML BAG 1,000 ML IV (23:45)
[2017-09-26 23:47] LABS: ALBUMIN 3.3 g/dL (3.4-5.0); ALK PHOS 64 U/L (46-116); ALT (SGPT) 19 U/L (14-59); AST (SGOT) 10 U/L (15-37); LIPASE 251 U/L (73-393); TOTAL BILIRUBIN 0.2 mg/dL (0.2-1.0); TOTAL PROTEIN 6.7 g/dL (6.4-8.2)
[2017-09-27 00:11] LABS: NEG OBC UR NEG; POS OBC UR POS; U PREG PATIENT NEGATIVE (NEG)
[2017-09-27] MEDS: IOHEXOL 300 MG/ML 100ML VIAL. IV (00:33)
[2017-09-27 00:41] LABS: BILIRUBIN,URINE NEGATIVE (NEG); CLARITY,URINE CLEAR; COLOR,URINE YELLOW; GLUCOSE,URINE NEGATIVE (NEG); NITRITE,URINE NEGATIVE (NEG); PH,URINE 5.5; PROTEIN,URINE NEGATIVE (NEG-TRACE)
[2017-09-27 00:52] LABS: BACTERIA,URINE FEW /HPF (0-FEW); SQUAMOUS EPITHELIAL CELL,UR FEW /LPF
== END 2017-09-27 01:33 | disposition home or self-care (01) ==
LOC: ER 09-27 01:33
DX: R10.12 Left upper quadrant pain (principal); K59.00 Constipation, unspecified; G89.29 Other chronic pain; Z90.49 Acquired absence of other specified parts of digestive tract
CPT/HCPCS: 36415; 51701; 74177; 80053; 81001; 81025; 83690; 85025; 96361; 96374; 96375; 99285-25; J1885; J2405; J7030; Q9967

== ENCOUNTER → 2018-02-01 | Outpatient (CLI) | payer OTHER ==
[2017-09-27 01:32] VITALS: BP 132/64
[~2018-02-01] MED LIST changes: +AZIT250T6 PO; +BENZ100C PO; +CYCL10TA2 PO; +DIAZEPAM10 MG PO; +IBUP-1007 PO; +LURA80TA PO; +METR500T PO; +ONDA4TAB10 SL; +PRED-220 PO; +ZOLP5TAB PO
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
== END | disposition home or self-care (01) ==
LOC: PNCL 10:47
PROVIDERS: ATTEND Anesthesiology
DX: M54.5 Low back pain (principal); M79.605 Pain in left leg; Z87.891 Personal history of nicotine dependence; Z90.49 Acquired absence of other specified parts of digestive tract
CPT/HCPCS: 99214

== ENCOUNTER 2018-04-19 20:17 | Emergency (ER) | payer SELFPAY ==
[~2018-04-19] VITALS: Ht 154.9 cm; Wt 52.2 kg
[2018-04-19 20:38] LABS: BASO # 0.1 x10^3/uL (0.0-0.2); BASO % 1 % (0-3); EOS # 0.3 x10^3/uL (0.0-0.7); EOS % 3 % (0-3); HEMATOCRIT 41.6 % (36.0-47.0); HEMOGLOBIN 14.5 g/dL (12.0-15.5); LYMPH # 3.6 x10^3/uL (1.0-4.8); LYMPH % 32 % (24-48); MEAN CORPUSCULAR HEMOGLOBIN 34 pg (25-35); MEAN CORPUSCULAR HGB CONC 35 g/dL (31-37); MEAN CORPUSCULAR VOLUME 97 fL (79-100); MONO # 0.7 x10^3/uL (0.0-1.1); MONO % 7 % (0-9); NEUT # 6.6 x10^3uL (1.8-7.7); NEUT % 58 % (31-73); PLATELET COUNT 369 x10^3/uL (140-400); RED BLOOD COUNT 4.28 x10^6/uL (3.50-5.40); RED CELL DISTRIBUTION WIDTH 13.3 % (11.5-14.5); WHITE BLOOD COUNT 11.3 x10^3/uL (4.0-11.0)
[2018-04-19 20:44] LABS: CALCIUM 9.3 mg/dL (8.5-10.1); CREATININE 0.9 mg/dL (0.6-1.0); GFR 88.4; POTASSIUM 3.7 mmol/L (3.5-5.1)
[2018-04-19 20:50] LABS: ALBUMIN 3.6 g/dL (3.4-5.0); ALBUMIN/GLOBULIN RATIO 1.1 (1.0-1.7); TOTAL BILIRUBIN 0.4 mg/dL (0.2-1.0)
[2018-04-19 21:05] LABS: BILIRUBIN,URINE NEGATIVE (NEG); CLARITY,URINE CLOUDY; COLOR,URINE YELLOW; NITRITE,URINE NEGATIVE (NEG); PROTEIN,URINE NEGATIVE (NEG-TRACE)
[2018-04-19 21:11] LABS: BARBITURATES NEG (NEG); BENZODIAZEPINES POS (NEG); CANNABINOIDS POS (NEG); COCAINE NEG (NEG); METHADONE NEG (NEG); OPIATES POS (NEG); PHENCYCLIDINE NEG (NEG)
[2018-04-19 21:13] LABS: AMPHETAMINE/METHAMPHETAMINE NEG (NEG); BACTERIA,URINE 0 /HPF (0-FEW); RBC,URINE 0 /HPF (0-2); SQUAMOUS EPITHELIAL CELL,UR MANY /LPF
[2018-04-19 21:14] LABS: AMORPHOUS SEDIMENT,UR PRESENT /HPF
[2018-04-19] MEDS: fentaNYL PF VIAL 100 MCG/2 ML VIAL IV ONE (21:19)
[2018-04-19 21:41] VITALS: BP 110/71
--- NOTE | 2018-04-19 21:51 | PHYS DOC ---
Past Medical History Past Medical History: Anxiety, Other Additional Past Medical Histor: chronic back pain, fibroids Past Surgical History: Appendectomy, Cholecystectomy Additional Past Surgical Histo: cyst removed from ovary Additional Information: HALF PACK A DAY Alcohol Use: None Drug Use: None Adult General Chief Complaint Chief Complaint: CHEST PAIN HPI HPI Patient is a 32 year old female who presents with reproducible chest pain. Patient states that this is been ongoing for 3 days. She states that the pain is worse with inspiration. She denies diaphoresis or radiation of the pain. She states that she has had some mild flulike symptoms but had recovered from that. She denies any history of heart disease, asthma or COPD. Review of Systems Review of Systems Constitutional: Denies fever or chills [] Eyes: Denies change in visual acuity, redness, or eye pain [] HENT: Denies nasal congestion or sore throat [] Respiratory: Denies cough or shortness of breath [] Cardiovascular: No additional information not addressed in HPI [] GI: Denies abdominal pain, nausea, vomiting, bloody stools or diarrhea [] : Denies dysuria or hematuria [] Musculoskeletal: Denies back pain or joint pain [] Integument: Denies rash or skin lesions [] Neurologic: Denies headache, focal weakness or sensory changes [] Endocrine: Denies polyuria or polydipsia [] All other systems were reviewed and found to be within normal limits, except as documented in this note. Current Medications Current Medications Current Medications Medications (Trade) Dose Ordered Sig/Jaky Start Time Stop Time Status Last Admin Dose Admin Fentanyl Citrate (Fentanyl 2ml Vial) 50 mcg 1X ONCE 04/19/18 21:15 04/19/18 21:16 DC 04/19/18 21:19 50 MCG Allergies Allergies Allergies Coded Allergies Type Severity Reaction Last Updated Verified No Known Drug Allergies 02/18/14 No Physical Exam Physical Exam Constitutional: Well developed, well nourished, no acute distress, non-toxic appearance. [] HENT: Normocephalic, atraumatic, bilateral external ears normal, oropharynx moist, no oral exudates, nose normal. [] Eyes: PERRLA, EOMI, conjunctiva normal, no discharge. [] Neck: Normal range of motion, no tenderness, supple, no stridor. [] Cardiovascular:Heart rate regular rhythm, no murmur [] Lungs & Thorax: Bilateral breath sounds clear to auscultation [] Abdomen: Bowel sounds normal, soft, no tenderness, no masses, no pulsatile masses. [] Skin: Warm, dry, no erythema, no rash. [] Back: No tenderness, no CVA tenderness. [] Extremities: No tenderness, no cyanosis, no clubbing, ROM intact, no edema. [] Neurologic: Alert and oriented X 3, normal motor function, normal sensory function, no focal deficits noted. [] Psychologic: Affect normal, judgement normal, mood normal. [] Current Patient Data Vital Signs Vital Signs Date Time Temp Pulse Resp B/P (MAP) Pulse Ox O2 Delivery O2 Flow Rate FiO2 04/19/18 21:41 59 16 110/71 (84) 99 Room Air 04/19/18 20:23 98.0 98.0 Lab Values Laboratory Tests Test 04/19/18 20:27 04/19/18 20:48 04/19/18 20:53 White Blood Count 11.3 x10^3/uL (4.0-11.0) H Red Blood Count 4.28 x10^6/uL (3.50-5.40) Hemoglobin 14.5 g/dL (12.0-15.5) Hematocrit 41.6 % (36.0-47.0) Mean Corpuscular Volume 97 fL (79-100) Mean Corpuscular Hemoglobin 34 pg (25-35) Mean Corpuscular Hemoglobin Concent 35 g/dL (31-37) Red Cell Distribution Width 13.3 % (11.5-14.5) Platelet Count 369 x10^3/uL (140-400) Neutrophils (%) (Auto) 58 % (31-73) Lymphocytes (%) (Auto) 32 % (24-48) Monocytes (%) (Auto) 7 % (0-9) Eosinophils (%) (Auto) 3 % (0-3) Basophils (%) (Auto) 1 % (0-3) Neutrophils # (Auto) 6.6 x10^3uL (1.8-7.7) Lymphocytes # (Auto) 3.6 x10^3/uL (1.0-4.8) Monocytes # (Auto) 0.7 x10^3/uL (0.0-1.1) Eosinophils # (Auto) 0.3 x10^3/uL (0.0-0.7) Basophils # (Auto) 0.1 x10^3/uL (0.0-0.2) Sodium Level 138 mmol/L (136-145) Potassium Level 3.7 mmol/L (3.5-5.1) Chloride Level 102 mmol/L (98-107) Carbon Dioxide Level 27 mmol/L (21-32) Anion Gap 9 (6-14) Blood Urea Nitrogen 12 mg/dL (7-20) Creatinine 0.9 mg/dL (0.6-1.0) Estimated GFR (Cockcroft-Gault) 88.4 BUN/Creatinine Ratio 13 (6-20) Glucose Level 93 mg/dL (70-99) Calcium Level 9.3 mg/dL (8.5-10.1) Total Bilirubin 0.4 mg/dL (0.2-1.0) Aspartate Amino Transferase (AST) 11 U/L (15-37) L Alanine Aminotransferase (ALT) 19 U/L (14-59) Alkaline Phosphatase 68 U/L (46-116) Troponin I Quantitative < 0.017 ng/mL (0.000-0.055) Total Protein 7.0 g/dL (6.4-8.2) Albumin 3.6 g/dL (3.4-5.0) Albumin/Globulin Ratio 1.1 (1.0-1.7) Urine Collection Type Unknown Urine Color Yellow Urine Clarity Cloudy Urine pH 7.0 Urine Specific Garber 1.025 Urine Protein Negative mg/dL (NEG-TRACE) Urine Glucose (UA) Negative mg/dL (NEG) Urine Ketones (Stick) Trace mg/dL (NEG) Urine Blood Negative (NEG) Urine Nitrite Negative (NEG) Urine Bilirubin Negative (NEG) Urine Urobilinogen Dipstick 1.0 mg/dL (0.2 mg/dL) Urine Leukocyte Esterase Trace (NEG) Urine RBC 0 /HPF (0-2) Urine WBC 1-4 /HPF (0-4) Urine Squamous Epithelial Cells Many /LPF Urine Amorphous Sediment Present /HPF Urine Bacteria 0 /HPF (0-FEW) Urine Mucus Marked /LPF Urine Opiates Screen Pos (NEG) Urine Methadone Screen Neg (NEG) Urine Barbiturates Neg (NEG) Urine Phencyclidine Screen Neg (NEG) Urine Amphetamine/Methamphetamine Neg (NEG) Urine Benzodiazepines Screen Pos (NEG) Urine Cocaine Screen Neg (NEG) Urine Cannabinoids Screen Pos (NEG) Urine Ethyl Alcohol Neg (NEG) POC Urine HCG, Qualitative Hcg negative (Negative) Laboratory Tests 04/19/18 20:27 Laboratory Tests 04/19/18 20:27 EKG EKG [] Radiology/Procedures Radiology/Procedures []No acute cardiopulmonary abnormality noted on x-ray. This x-ray was read by Dr. May in the emergency department. Course & Med Decision Making Course & Med Decision Making Pertinent Labs and Imaging studies reviewed. (See chart for details) [] Dragon Disclaimer Dragon Disclaimer This electronic medical record was generated, in whole or in part, using a voice recognition dictation system. Departure Departure Impression: Primary Impression: Chest wall pain Disposition: HOME, SELF-CARE Condition: STABLE Referrals: UNKNOWN PCP NAME (PCP) Patient Instructions: Chest Wall Pain Additional Instructions: You may take ibuprofen or Tylenol for pain. Follow-up with your primary care provider in 3 days for recheck if not improving or return to the emergency department if worsening. MAURA HI DATA VIRTUALIZATION CONSULTANT Apr 19, 2018 21:51
--- NOTE | 2018-04-20 03:33 | EKG ---
[facility] [address] [place] [address] Test Date: 2018-04-19 Test Time: 20:23:36 Pat Name: CARSON ROY Department: Room: Gender: F Synchronizer: : 1985 Requested By: MAURA HI Order Number: [id number] Reading MD: Measurements Intervals [place] Rate: 58 P: CO: QRS: 26 QRSD: 74 T: 28 QT: 400 QTc: 396 Interpretive Statements IRREGULAR RHYTHM, NO P-WAVE FOUND QRS(T) CONTOUR ABNORMALITY CONSIDER ANTEROSEPTAL MYOCARDIAL DAMAGE T ABNORMALITY IN ANTERIOR LEADS ABNORMAL ECG RI6.01 No previous ECG available for comparison
--- NOTE | 2018-04-20 08:01 | RAD ---
EXAM: PA and Lateral Views of the Chest DATE: 04/19/2018 9:05 PM INDICATION: Chest pain x 1 day COMPARISON: 01/16/2017 FINDINGS: The heart is not enlarged. Mediastinal and hilar contours are normal. No focal parenchymal airspace opacity. No pleural effusion or pneumothorax. Pectus deformity of the chest wall. S-shaped scoliosis of the spine. Cholecystectomy clips are seen in the right upper quadrant. IMPRESSION: 1. No radiographic evidence for acute cardiopulmonary process. Electronically signed by: Jayy Bonilla MD (04/20/2018 7:58 AM) [facility]
== END 2018-04-19 21:55 | disposition home or self-care (01) ==
LOC: ER 20:17
DX: R07.89 Other chest pain (principal); F41.9 Anxiety disorder, unspecified; F17.200 Nicotine dependence, unspecified, uncomplicated; G89.29 Other chronic pain; Z90.49 Acquired absence of other specified parts of digestive tract; Z90.89 Acquired absence of other organs
CPT/HCPCS: 36415; 71046; 80053; 80307; 81001; 81025; 84484; 85025; 93005; 96374; 99285; J3010

== ENCOUNTER 2018-10-23 06:19 | Emergency (ER) | payer SELFPAY ==
[~2018-10-23] VITALS: Ht 154.9 cm; Wt 49.9 kg
[~2018-10-23 06:19] MED LIST changes: -HYDR-79 PO; +HYDROCODONE-IB1 EAC3 PO
[2018-10-23 07:03] LABS: BASO # 0.1 x10^3/uL (0.0-0.2); BASO % 1 % (0-3); EOS # 0.3 x10^3/uL (0.0-0.7); EOS % 4 % (0-3); HEMATOCRIT 41.8 % (36.0-47.0); HEMOGLOBIN 14.4 g/dL (12.0-15.5); LYMPH # 3.3 x10^3/uL (1.0-4.8); LYMPH % 53 % (24-48); MEAN CORPUSCULAR HEMOGLOBIN 34 pg (25-35); MEAN CORPUSCULAR HGB CONC 35 g/dL (31-37); MEAN CORPUSCULAR VOLUME 98 fL (79-100); MONO # 0.5 x10^3/uL (0.0-1.1); MONO % 8 % (0-9); NEUT # 2.1 x10^3uL (1.8-7.7); NEUT % 34 % (31-73); PLATELET COUNT 372 x10^3/uL (140-400); RED BLOOD COUNT 4.25 x10^6/uL (3.50-5.40); RED CELL DISTRIBUTION WIDTH 13.3 % (11.5-14.5); WHITE BLOOD COUNT 6.2 x10^3/uL (4.0-11.0)
[2018-10-23 07:05] LABS: BILIRUBIN,URINE NEGATIVE (NEG); CLARITY,URINE CLOUDY; COLOR,URINE AMBER; NITRITE,URINE NEGATIVE (NEG); PROTEIN,URINE >=300 mg/dL (NEG-TRACE)
[2018-10-23] MEDS: KETOROLAC 30 MG/ML VIAL. IV ONE (07:11)
[2018-10-23] MEDS: ONDANSETRON PF 4 MG/2 ML VIAL. IV ONE (07:11)
[2018-10-23] MEDS: IV NORMAL SALINE 1000ML BAG 1,000 ML IV SCH (07:12)
--- NOTE | 2018-10-23 07:18 | RAD ---
DATE OF SERVICE: 10/23/2018 6:44 AM EXAM: CT scan of the abdomen and pelvis without intravenous contrast CLINICAL HISTORY: Right flank pain, hematuria. TECHNIQUE: Axial CT images were obtained through the abdomen and pelvis without the use of intravenous or enteric contrast. Multiplanar 2D reformatted images were also reviewed. Dose lowering technique(s) such as automated exposure control, iterative reconstruction, and mA and/or KV adjustment for patient size was utilized for this examination. COMPARISON: CT scan of the abdomen/pelvis dated 09/27/2017; pelvic ultrasound dated 07/19/2017. FINDINGS: There is a 10 x 6 x 8 mm nonobstructing calculus in the right renal pelvis. There is a 1-2 mm nonobstructing calculus in the lower pole of the right kidney. There is a 1-2 mm nonobstructing calculus in the lower pole of the left kidney. No ureteral or bladder calculus is identified and there is no obstructive uropathy. The kidneys, ureters, and urinary bladder demonstrate an otherwise unremarkable noncontrast CT appearance. Again seen are postoperative changes of cholecystectomy. There is central intrahepatic and extrahepatic biliary ductal dilatation which has increased in prominence since the previous examination. The common hepatic/common bile duct measures 10-11 mm diameter. No obstructing lesion is identified. This may represent the normal postcholecystectomy state. If there is clinical concern for biliary ductal obstruction, MRCP/ERCP can be considered for further evaluation. No focal hepatic lesion is identified. The pancreas, spleen, adrenal glands, and gynecologic structures demonstrate an unremarkable noncontrast CT appearance. No abdominopelvic lymphadenopathy is seen. The abdominal aorta is normal in course and caliber. Aortic dissection is neither included nor excluded in the absence of intravenous contrast. There is a small fat-containing umbilical hernia. Visualized portions of the lung bases are clear. Again seen is levoscoliosis of the thoracolumbar spine. There are no significant degenerative changes involving the spine. IMPRESSION: 1. Nonobstructing renal calculi bilaterally. 2. Interval increased postcholecystectomy biliary ductal dilatation. 3. Small fat-containing umbilical hernia. Electronically signed by: Edu Golden MD (10/23/2018 7:16 AM) [facility]
[2018-10-23 07:19] LABS: BACTERIA,URINE FEW /HPF (0-FEW); RBC,URINE >40 /HPF (0-2); WBC,URINE 20-40 /HPF (0-4)
[2018-10-23 07:20] LABS: SQUAMOUS EPITHELIAL CELL,UR FEW /LPF
[2018-10-23 07:22] LABS: CALCIUM 9.1 mg/dL (8.5-10.1); CREATININE 1.1 mg/dL (0.6-1.0); GFR 70.1; POTASSIUM 3.6 mmol/L (3.5-5.1)
--- NOTE | 2018-10-23 07:23 | PHYS DOC ---
Past Medical History Past Medical History: Anxiety, Bipolar, Other Additional Past Medical Histor: chronic back pain, fibroids Past Surgical History: Appendectomy, Cholecystectomy Additional Past Surgical Histo: cyst removed from ovary Alcohol Use: None Drug Use: None Adult General Chief Complaint Chief Complaint: FLANK PAIN [facility] HPI Patient is a 32 year old female who presents with complaining of right flank pain. Patient complaining of constant sharp right flank pain for the last 3 days that getting better and worse and associated with episodes of nausea and vomiting and rated her pain 10 over 10. Patient states the pain radiated to right lower quadrant Patient complaining of bloody urine for the same time without urinary frequency or dysuria, fever and chills, diarrhea and constipation, vaginal bleeding or discharge, . Patient states she took ibuprofen without improvement of her pain. Review of Systems Review of Systems Constitutional: Denies fever or chills [] Eyes: Denies change in visual acuity, redness, or eye pain [] HENT: Denies nasal congestion or sore throat [] Respiratory: Denies cough or shortness of breath [] Cardiovascular: No additional information not addressed in HPI [] GI: Denies abdominal pain, nausea, vomiting, bloody stools or diarrhea [] : Reports hematuria and flank pain Musculoskeletal: Denies back pain or joint pain [] Integument: Denies rash or skin lesions [] Neurologic: Denies headache, focal weakness or sensory changes [] Endocrine: Denies polyuria or polydipsia [] All other systems were reviewed and found to be within normal limits, except as documented in this note. Current Medications Current Medications Current Medications Medications (Trade) Dose Ordered Sig/[facility] Start Time Stop Time Status Last Admin Dose Admin Ceftriaxone Sodium (Rocephin) 1 gm 1X ONCE 10/23/18 08:00 10/23/18 08:01 DC Ketorolac Tromethamine (Toradol 30mg Vial) 30 mg 1X ONCE 10/23/18 07:00 10/23/18 07:01 DC 10/23/18 07:11 30 MG Ondansetron HCl (Zofran) 4 mg 1X ONCE 10/23/18 06:45 10/23/18 06:46 DC 10/23/18 07:11 4 MG Sodium Chloride 1,000 ml @ 1,000 mls/hr Q1H 10/23/18 06:45 10/23/18 07:44 DC 10/23/18 07:12 1,000 MLS/HR Allergies Allergies Allergies Coded Allergies Type Severity Reaction Last Updated Verified No Known Drug Allergies 02/18/14 No Physical Exam Physical Exam Constitutional: Well developed, well nourished, mild distress, non-toxic appearance. [] HENT: Normocephalic, atraumatic, oropharynx moist. Eyes: PERRLA, EOMI, conjunctiva normal, no discharge. [] Neck: Normal range of motion, no tenderness, supple, no stridor. [] Cardiovascular:Heart rate regular rhythm, no murmur [] Lungs & Thorax: Bilateral breath sounds clear to auscultation [] Abdomen: Bowel sounds normal, soft, no tenderness, no masses, no pulsatile masses. [] Skin: Warm, dry, no erythema, no rash. [] Back: No tenderness, no CVA tenderness. [] Extremities: No tenderness, no cyanosis, no clubbing, ROM intact, no edema. [] Neurologic: Alert and oriented X 3, normal motor function, normal sensory function, no focal deficits noted. [] Psychologic: Affect anxious, judgement normal, mood normal. [] Current Patient Data Vital Signs Vital Signs Date Time Temp Pulse Resp B/P (MAP) Pulse Ox O2 Delivery O2 Flow Rate FiO2 10/23/18 06:30 98.0 84 16 111/82 (92) 97 Room Air 98.0 Lab Values Laboratory Tests Test 10/23/18 06:25 10/23/18 06:32 10/23/18 06:38 Urine Collection Type Void Urine Color Michelle Urine Clarity Cloudy Urine pH 6.0 Urine Specific [place] 1.025 Urine Protein >=300 mg/dL (NEG-TRACE) Urine Glucose (UA) Negative mg/dL (NEG) Urine Ketones (Stick) Negative mg/dL (NEG) Urine Blood Large (NEG) Urine Nitrite Negative (NEG) Urine Bilirubin Negative (NEG) Urine Urobilinogen Dipstick 1.0 mg/dL (0.2 mg/dL) Urine Leukocyte Esterase Moderate (NEG) Urine RBC >40 /HPF (0-2) Urine WBC 20-40 /HPF (0-4) Urine Squamous Epithelial Cells Few /LPF Urine Bacteria Few /HPF (0-FEW) Urine Mucus Slight /LPF Urine Opiates Screen Pos (NEG) Urine Methadone Screen Neg (NEG) Urine Barbiturates Neg (NEG) Urine Phencyclidine Screen Neg (NEG) Urine Amphetamine/Methamphetamine Neg (NEG) Urine Benzodiazepines Screen Pos (NEG) Urine Cocaine Screen Neg (NEG) Urine Cannabinoids Screen Pos (NEG) Urine Ethyl Alcohol Neg (NEG) White Blood Count 6.2 x10^3/uL (4.0-11.0) Red Blood Count 4.25 x10^6/uL (3.50-5.40) Hemoglobin 14.4 g/dL (12.0-15.5) Hematocrit 41.8 % (36.0-47.0) Mean Corpuscular Volume 98 fL (79-100) Mean Corpuscular Hemoglobin 34 pg (25-35) Mean Corpuscular Hemoglobin Concent 35 g/dL (31-37) Red Cell Distribution Width 13.3 % (11.5-14.5) Platelet Count 372 x10^3/uL (140-400) Neutrophils (%) (Auto) 34 % (31-73) Lymphocytes (%) (Auto) 53 % (24-48) H Monocytes (%) (Auto) 8 % (0-9) Eosinophils (%) (Auto) 4 % (0-3) H Basophils (%) (Auto) 1 % (0-3) Neutrophils # (Auto) 2.1 x10^3uL (1.8-7.7) Lymphocytes # (Auto) 3.3 x10^3/uL (1.0-4.8) Monocytes # (Auto) 0.5 x10^3/uL (0.0-1.1) Eosinophils # (Auto) 0.3 x10^3/uL (0.0-0.7) Basophils # (Auto) 0.1 x10^3/uL (0.0-0.2) Sodium Level 140 mmol/L (136-145) Potassium Level 3.6 mmol/L (3.5-5.1) Chloride Level 103 mmol/L (98-107) Carbon Dioxide Level 26 mmol/L (21-32) Anion Gap 11 (6-14) Blood Urea Nitrogen 17 mg/dL (7-20) Creatinine 1.1 mg/dL (0.6-1.0) H Estimated GFR (Cockcroft-Gault) 70.1 BUN/Creatinine Ratio 15 (6-20) Glucose Level 92 mg/dL (70-99) Calcium Level 9.1 mg/dL (8.5-10.1) Total Bilirubin 0.5 mg/dL (0.2-1.0) Aspartate Amino Transferase (AST) 11 U/L (15-37) L Alanine Aminotransferase (ALT) 21 U/L (14-59) Alkaline Phosphatase 66 U/L (46-116) Total Protein 7.4 g/dL (6.4-8.2) Albumin 3.8 g/dL (3.4-5.0) Albumin/Globulin Ratio 1.1 (1.0-1.7) Lipase 107 U/L (73-393) POC Urine HCG, Qualitative Hcg negative (Negative) Laboratory Tests 10/23/18 06:32 Laboratory Tests 10/23/18 06:32 EKG EKG [] Radiology/Procedures Radiology/Procedures [facility] [address] [place] [address] IMAGING REPORT Signed PATIENT: CARSON ROY ACCOUNT: [id number] : 1985 LOCATION: ER AGE: 32 SEX: F EXAM STATUS: REG ER ORD. PHYSICIAN: ALMA ROSA DELAROSA MD REASON: right flank pain-BLOOD IN URINE PROCEDURE: CT ABDOMEN PELVIS WO CONTRAST DATE OF SERVICE: 10/23/2018 6:44 AM EXAM: CT scan of the abdomen and pelvis without intravenous contrast CLINICAL HISTORY: Right flank pain, hematuria. TECHNIQUE: Axial CT images were obtained through the abdomen and pelvis without the use of intravenous or enteric contrast. Multiplanar 2D reformatted images were also reviewed. Dose lowering technique(s) such as automated exposure control, iterative reconstruction, and mA and/or KV adjustment for patient size was utilized for this examination. COMPARISON: CT scan of the abdomen/pelvis dated 09/27/2017; pelvic ultrasound dated 07/19/2017. FINDINGS: There is a 10 x 6 x 8 mm nonobstructing calculus in the right renal pelvis. There is a 1-2 mm nonobstructing calculus in the lower pole of the right kidney. There is a 1-2 mm nonobstructing calculus in the lower pole of the left kidney. No ureteral or bladder calculus is identified and there is no obstructive uropathy. The kidneys, ureters, and urinary bladder demonstrate an otherwise unremarkable noncontrast CT appearance. Again seen are postoperative changes of cholecystectomy. There is central intrahepatic and extrahepatic biliary ductal dilatation which has increased in prominence since the previous examination. The common hepatic/common bile duct measures 10-11 mm diameter. No obstructing lesion is identified. This may represent the normal postcholecystectomy state. If there is clinical concern for biliary ductal obstruction, MRCP/ERCP can be considered for further evaluation. No focal hepatic lesion is identified. The pancreas, spleen, adrenal glands, and gynecologic structures demonstrate an unremarkable noncontrast CT appearance. No abdominopelvic lymphadenopathy is seen. The abdominal aorta is normal in course and caliber. Aortic dissection is neither included nor excluded in the absence of intravenous contrast. There is a small fat-containing umbilical hernia. Visualized portions of the lung bases are clear. Again seen is levoscoliosis of the thoracolumbar spine. There are no significant degenerative changes involving the spine. IMPRESSION: 1. Nonobstructing renal calculi bilaterally. 2. Interval increased postcholecystectomy biliary ductal dilatation. 3. Small fat-containing umbilical hernia. Electronically signed by: Melania Saldaña MD (10/23/2018 7:16 AM) [facility] DICTATED and SIGNED BY: MELANIA SALDAÑA MD DATE: 10/23/18 0716 Course & Med Decision Making Course & Med Decision Making Pertinent Labs and Imaging studies reviewed. (See chart for details) Evaluation of the patient in ER showed 32-year-old female patient with compl aining of episodes of right flank pain for the last 3 days with hematuria. Patient had unremarkable physical exam and labs except for a large amount of blood and WBC in her urine. IUDS showed positive opiate and marijuana. Patient treated with IV fluid and Zofran and Toradol and felt better. 1 dose of Rocephin was given. CT of abdomen and pelvis showed bilateral nephrolithiasis without ureterolithiasis. Plan to discharge patient home with diagnose of UTI. Dragon Disclaimer Dragon Disclaimer This electronic medical record was generated, in whole or in part, using a voice recognition dictation system. Departure Departure Impression: Primary Impression: Hemorrhagic cystitis Additional Impressions: Nephrolithiasis Substance abuse Tobacco abuse Disposition: HOME, SELF-CARE (at 8:15) Condition: IMPROVED Referrals: SOULEYMANE RUBI MD (PCP) Patient Instructions: Urinary Tract Infection Additional Instructions: Drink plenty of liquids Follow-up with your primary care physician in 3-5 days Return to ER if not getting better Scripts [Percogesic] No Conflict Check 1 TAB PO QID PRN for PAIN, #14 Prov: ALMA ROSA DELAROSA MD 10/23/18 Sulfamethoxazole/Trimethoprim (BACTRIM DS TABLET) 1 Each Tablet 1 TAB PO BID for infection, #14 TAB Prov: ALMA ROSA DELAROSA MD 10/23/18 Problem Qualifiers ALMA ROSA DELAROSA MD October 23, 2018 07:23
[2018-10-23 07:24] LABS: AMPHETAMINE/METHAMPHETAMINE NEG (NEG); BARBITURATES NEG (NEG); BENZODIAZEPINES POS (NEG); CANNABINOIDS POS (NEG); COCAINE NEG (NEG); METHADONE NEG (NEG); OPIATES POS (NEG); PHENCYCLIDINE NEG (NEG)
[2018-10-23 07:27] LABS: ALBUMIN 3.8 g/dL (3.4-5.0); ALBUMIN/GLOBULIN RATIO 1.1 (1.0-1.7); TOTAL BILIRUBIN 0.5 mg/dL (0.2-1.0); TOTAL PROTEIN 7.4 g/dL (6.4-8.2)
[2018-10-23] MEDS ORDERED: Percogesic PO (08:15)
[2018-10-23] MEDS ORDERED: SULF1TAB24 PO (08:15)
[2018-10-23] MEDS: cefTRIAXone IV Push 1 GM VIAL. IVP ONE (08:32)
[2018-10-23 08:35] VITALS: BP 108/66
== END 2018-10-23 09:20 | disposition home or self-care (01) ==
LOC: ER 06:19
DX: N30.91 Cystitis, unspecified with hematuria (principal); N20.0 Calculus of kidney; F19.10 Other psychoactive substance abuse, uncomplicated; Z72.0 Tobacco use; K42.9 Umbilical hernia without obstruction or gangrene; R11.2 Nausea with vomiting, unspecified; F41.9 Anxiety disorder, unspecified; F31.9 Bipolar disorder, unspecified; G89.29 Other chronic pain; Z90.49 Acquired absence of other specified parts of digestive tract; Z90.89 Acquired absence of other organs
CPT/HCPCS: 36415; 74176; 80053; 80307; 81001; 81025; 83690; 85025; 87086; 96361; 96374; 96375; 99285; J0696; J1885; J2405; J7030; 87186

== ENCOUNTER → 2019-09-04 | Outpatient (CLI) | payer MEDICAID ==
[~2019-09-04] MED LIST changes: +Percogesic PO
--- NOTE | 2019-09-04 10:51 | RAD ---
PELVIS W/TV History: Pelvic pain Comparison: 07/19/2017 Findings: Multiple transabdominal sonographic images of pelvis are submitted. Pelvic structures are not well visualized. Transvaginal ultrasound: Multiple transvaginal sonographic images of the pelvis are submitted. Uterus measured 7.8 x 5 x 3.7 cm. There is again mass of the posterior uterus on the order of 1.9 x 1.3 x 1.1 cm, previously up to 1.5 cm in size. There is no significant free fluid. Right ovary measured 4.1 x 3.6 x 2.4 cm with normal low resistance vascularity. Left ovary measured 4 x 3.9 x 2.4 cm with normal low resistance vascularity. There are multiple follicles of the ovaries bilaterally as seen previously. There is also focus of different echogenicity of the right ovary with internal echoes and some associated internal vascularity on color Doppler imaging, measures on the order of 2.5 x 1.8 x 2.4 cm in size. There is also another more solid-appearing masslike focus of echogenicity adjacent to the right ovary on the order of 2.9 x 2.8 x 2 cm in size, not seen on previous exam. Impression: 1. There is a more solid-appearing masslike focus of echogenicity adjacent to the right ovary concerning for paraovarian mass. There is focus of different echogenicity of the right ovary which could be a complex and partially collapsed cyst, although solid mass difficult to exclude this point in time. Pelvis MRI could be beneficial for better characterization. 2. There is again posterior uterine mass, most likely a fibroid. 3. There are again multiple follicles of the bilateral ovaries. Electronically signed by: Joesph aMncilla MD (09/04/2019 10:48 AM) [facility]
--- NOTE | 2019-09-04 13:49 | RAD ---
Examination: 1. Bilateral digital diagnostic mammogram with 2-D and 3-D technique. 2. Limited bilateral breast ultrasound. INDICATION: 33-year-old woman with bilateral breast lumps for one month, more notable in the left breast. COMPARISON: None. This will serve as a baseline. TECHNIQUE: Bilateral CC and MLO views were obtained with 2-D and 3-D technique and reviewed with computer-aided detection. Thereafter, targeted ultrasound of each breast in the areas of patient reported palpable concern was performed. The technologist during the examination observed lumpiness in the anterior lateral right breast which she marked with a triangle marker for additional imaging evaluation. FINDINGS: Bilateral mammogram: Extremely dense breast parenchyma. No dominant mass, architectural distortion or suspicious calcifications. The nipple areola complexes are unremarkable. There is no skin thickening. There is no mammographic correlate to the area of palpable concern as identified by the technologist in the lateral anterior right breast. There is a nodular parenchymal pattern compatible with benign cystic change. Bilateral Limited breast ultrasound Dense fibroglandular tissue is confirmed on ultrasound. In the right breast in the area of palpable concern, a 1 cm sonographically benign oval parallel orientation hypoechoic mass with posterior acoustic enhancement and circumscribed borders is present at the 10:00 position 4 cm from the nipple, correlating with the area of palpable interest as reported by the technologist. This is sonographically benign and compatible with a complicated cyst. Sonographic survey of the right axilla is unremarkable. In the left breast, multiple mildly complicated cysts with low-level internal echoes are identified including a 9 mm cyst at the 12:00 position 2 cm from the nipple, a 6 mm cyst at the 1:00 position 4 cm from the nipple and an 8 mm lesion at the 12:00 position 5 cm from the nipple that shows slightly less well-defined margins. These all have a sonographically benign appearance compatible with either complicated cysts or small fibroadenomas. In the absence of a clinically suspicious finding, no further work up of follow-up is recommended. IMPRESSION: Benign findings on bilateral mammogram and targeted breast ultrasound. No evidence of malignancy. Management of a clinical finding if one is present should be clinical with biopsy of any clinically suspicious findings. In the absence of any clinical suspicious finding, age-appropriate routine mammographic screening starting at age 40 in average risk women is recommended. Discussed with patient. BI-RADS Category 2 Benign findings. Recommend clinical management and age-appropriate routine screening is described. Patient entered into a reminder system with target due date for next mammogram.
== END | disposition home or self-care (01) ==
LOC: US 09:35
PROVIDERS: ATTEND Obstetrics & Gynecology
DX: N60.02 Solitary cyst of left breast (principal); N60.01 Solitary cyst of right breast; N83.201 Unspecified ovarian cyst, right side; N30.90 Cystitis, unspecified without hematuria
CPT/HCPCS: 76641; 76830; 76856; 77066

== ENCOUNTER 2021-10-12 14:09 | Emergency (ER) | payer MEDICAID ==
[~2021-10-12] VITALS: Ht 154.9 cm; Wt 75.0 kg
[~2021-10-12 14:09] MED LIST changes: +CYCL10TA19 PO; -CYCL10TA2 PO; -LURA80TA PO; +LURA80TA2 PO
[2021-10-12] MEDS ORDERED: ONDANSETRON PF 4 MG/2 ML VIAL. IVP ONE (15:00)
[2021-10-12] MEDS ORDERED: IV NORMAL SALINE 1000ML BAG 1,000 ML IV SCH (15:00)
[2021-10-12 15:07] LABS: BASO # 0.1 x10^3/uL (0.0-0.2); BASO % 1 % (0-3); EOS # 0.3 x10^3/uL (0.0-0.7); EOS % 4 % (0-3); HEMATOCRIT 42.1 % (36.0-47.0); HEMOGLOBIN 14.5 g/dL (12.0-15.5); LYMPH # 2.2 x10^3/uL (1.0-4.8); LYMPH % 25 % (24-48); MEAN CORPUSCULAR HEMOGLOBIN 33 pg (25-35); MEAN CORPUSCULAR HGB CONC 34 g/dL (31-37); MEAN CORPUSCULAR VOLUME 96 fL (79-100); MONO # 0.5 x10^3/uL (0.0-1.1); MONO % 6 % (0-9); NEUT # 5.5 x10^3/uL (1.8-7.7); NEUT % 64 % (31-73); PLATELET COUNT 424 x10^3/uL (140-400); RED BLOOD COUNT 4.39 x10^6/uL (3.50-5.40); RED CELL DISTRIBUTION WIDTH 13.1 % (11.5-14.5); WHITE BLOOD COUNT 8.7 x10^3/uL (4.0-11.0)
[2021-10-12 15:16] LABS: CALCIUM 8.7 mg/dL (8.5-10.1); CREATININE 0.9 mg/dL (0.6-1.0); GFR 86.7; POTASSIUM 3.7 mmol/L (3.5-5.1)
[2021-10-12 15:22] LABS: ALBUMIN 3.5 g/dL (3.4-5.0); TOTAL BILIRUBIN 0.4 mg/dL (0.2-1.0); TOTAL PROTEIN 7.1 g/dL (6.4-8.2)
--- NOTE | 2021-10-12 15:34 | RAD ---
EXAM: Supine AP view of the abdomen DATE: 10/12/2021 3:01 PM INDICATION: Reason: abd pain, lower COMPARISON: No Prior FINDINGS: No abnormal small or large bowel dilatation. Moderate colonic stool content. No abnormal soft tissu e mass effect. No suspicious calcifications are seen. Evaluation for free intraperitoneal gas is li mited on this supine exam. Cholecystectomy clips right upper quadrant. Scattered pelvic phleboliths. IMPRESSION: 1. No evidence for bowel obstruction. Electronically signed by: Jayy Bonilla MD (10/12/2021 3:32 PM) NATALI
[2021-10-12 15:56] LABS: BILIRUBIN,URINE NEGATIVE (NEG); CLARITY,URINE CLEAR; COLOR,URINE YELLOW; NITRITE,URINE NEGATIVE (NEG); PROTEIN,URINE NEGATIVE (NEG-TRACE); UROBILINOGEN,URINE 0.2 mg/dL (0.2 mg/dL)
[2021-10-12 15:57] LABS: BACTERIA,URINE MODERATE /HPF (0-FEW)
[2021-10-12 15:58] LABS: TRICHOMONAS,URINE PRESENT
[2021-10-12 16:04] LABS: BARBITURATES NEG (NEG); BENZODIAZEPINES POS (NEG); CANNABINOIDS NEG (NEG); COCAINE POS (NEG); METHADONE NEG (NEG); OPIATES NEG (NEG); PHENCYCLIDINE NEG (NEG)
[2021-10-12 16:05] LABS: AMPHETAMINE/METHAMPHETAMINE NEG (NEG)
[2021-10-12 16:11] VITALS: BP 116/76
[2021-10-12] MEDS ORDERED: CEPH500C PO (16:17)
--- NOTE | 2021-10-12 16:26 | PHYS DOC ---
Past Medical History Past Medical History: Anxiety, Bipolar, Other Additional Past Medical Histor: chronic back pain, fibroids Past Surgical History: Appendectomy, Cholecystectomy, Other Additional Past Surgical Histo: cyst removed from ovary Smoking Status: Current Every Day Smoker Alcohol Use: None Drug Use: None General Adult EDM: Chief Complaint: ABDOMINAL PAIN HPI: HPI: Patient is a 35 year old female who presents with suprapubic tenderness and pain. Patient denies dysuria. Patient denies constipation, nausea, vomiting. Patient otherwise has no other complaints. Patient states that the lower abdominal pain started about 3 days ago, has not changed but it is ongoing. Review of Systems: Review of Systems: Constitutional: Denies fever or chills. [] Eyes: Denies change in visual acuity. [] HENT: Denies nasal congestion or sore throat. [] Respiratory: Denies cough or shortness of breath. [] Cardiovascular: Denies chest pain or edema. [] GI: Positive abdominal pain, no nausea, vomiting, bloody stools or diarrhea. [] : Denies dysuria. [] Musculoskeletal: Denies back pain or joint pain. [] Integument: Denies rash. [] Neurologic: Denies headache, focal weakness or sensory changes. [] Endocrine: Denies polyuria or polydipsia. [] Lymphatic: Denies swollen glands. [] Psychiatric: Denies depression or anxiety. [] Heart Score: C/O Chest Pain: No Risk Factors: Risk Factors: DM, Current or recent (<one month) smoker, HTN, HLP, family history of CAD, obesity. Risk Scores: Score 0 - 3: 2.5% MACE over next 6 weeks - Discharge Home Score 4 - 6: 20.3% MACE over next 6 weeks - Admit for Clinical Observation Score 7 - 10: 72.7% MACE over next 6 weeks - Early Invasive Strategies Current Medications: Current Medications Medications (Trade) Dose Ordered Sig/[facility] Start Time Stop Time Status Last Admin Dose Admin Ceftriaxone Sodium (Rocephin) 1 gm 1X ONCE 10/12/21 16:30 10/12/21 16:31 Ondansetron HCl (Zofran) 4 mg 1X ONCE 10/12/21 15:00 10/12/21 15:01 DC 10/12/21 15:04 4 MG Sodium Chloride 1,000 ml @ 1,000 mls/hr Q1H 10/12/21 15:00 10/12/21 15:59 DC 10/12/21 15:04 1,000 MLS/HR Allergies: Allergies: Allergies Coded Allergies Type Severity Reaction Last Updated Verified No Known Drug Allergies 02/18/14 No Physical Exam: PE: Constitutional: Well developed, well nourished, no acute distress, non-toxic appearance. [] HENT: Normocephalic, atraumatic, bilateral external ears normal, oropharynx mois t, no oral exudates, nose normal. [] Eyes: PERRLA, EOMI, conjunctiva normal, no discharge. [] Neck: Normal range of motion, no tenderness, supple, no stridor. [] Cardiovascular:Heart rate regular rhythm, no murmur [] Lungs & Thorax: Bilateral breath sounds clear to auscultation [] Abdomen: Bowel sounds normal, soft, minimal suprapubic tenderness, no masses, no pulsatile masses. [] Skin: Warm, dry, no erythema, no rash. [] Back: No tenderness, no CVA tenderness. [] Extremities: No tenderness, no cyanosis, no clubbing, ROM intact, no edema. [] Neurologic: Alert and oriented X 3, normal motor function, normal sensory function, no focal deficits noted. [] Psychologic: Affect normal, judgement normal, mood normal. [] Current Patient Data: Labs: Laboratory Tests Test 10/12/21 14:25 10/12/21 14:31 10/12/21 14:55 Urine Collection Type Unknown Urine Color Yellow Urine Clarity Clear Urine pH 7.0 Urine Specific [place] 1.010 Urine Protein Negative mg/dL (NEG-TRACE) Urine Glucose (UA) Negative mg/dL (NEG) Urine Ketones (Stick) Negative mg/dL (NEG) Urine Blood Negative (NEG) Urine Nitrite Negative (NEG) Urine Bilirubin Negative (NEG) Urine Urobilinogen Dipstick 0.2 mg/dL (0.2 mg/dL) Urine Leukocyte Esterase Trace (NEG) Urine RBC 1-2 /HPF (0-2) Urine WBC 1-4 /HPF (0-4) Urine Squamous Epithelial Cells Many /LPF Urine Bacteria Moderate /HPF (0-FEW) Urine Trichomonas Present Urine Opiates Screen Neg (NEG) Urine Methadone Screen Neg (NEG) Urine Barbiturates Neg (NEG) Urine Phencyclidine Screen Neg (NEG) Urine Amphetamine/Methamphetamine Neg (NEG) Urine Benzodiazepines Screen Pos (NEG) Urine Cocaine Screen Pos (NEG) Urine Cannabinoids Screen Neg (NEG) Urine Ethyl Alcohol Neg (NEG) POC Urine HCG, Qualitative Hcg negative (Negative) White Blood Count 8.7 x10^3/uL (4.0-11.0) Red Blood Count 4.39 x10^6/uL (3.50-5.40) Hemoglobin 14.5 g/dL (12.0-15.5) Hematocrit 42.1 % (36.0-47.0) Mean Corpuscular Volume 96 fL (79-100) Mean Corpuscular Hemoglobin 33 pg (25-35) Mean Corpuscular Hemoglobin Concent 34 g/dL (31-37) Red Cell Distribution Width 13.1 % (11.5-14.5) Platelet Count 424 x10^3/uL (140-400) H Neutrophils (%) (Auto) 64 % (31-73) Lymphocytes (%) (Auto) 25 % (24-48) Monocytes (%) (Auto) 6 % (0-9) Eosinophils (%) (Auto) 4 % (0-3) H Basophils (%) (Auto) 1 % (0-3) Neutrophils # (Auto) 5.5 x10^3/uL (1.8-7.7) Lymphocytes # (Auto) 2.2 x10^3/uL (1.0-4.8) Monocytes # (Auto) 0.5 x10^3/uL (0.0-1.1) Eosinophils # (Auto) 0.3 x10^3/uL (0.0-0.7) Basophils # (Auto) 0.1 x10^3/uL (0.0-0.2) Sodium Level 144 mmol/L (136-145) Potassium Level 3.7 mmol/L (3.5-5.1) Chloride Level 107 mmol/L (98-107) Carbon Dioxide Level 27 mmol/L (21-32) Anion Gap 10 (6-14) Blood Urea Nitrogen 8 mg/dL (7-20) Creatinine 0.9 mg/dL (0.6-1.0) Estimated GFR (Cockcroft-Gault) 86.7 BUN/Creatinine Ratio 9 (6-20) Glucose Level 89 mg/dL (70-99) Calcium Level 8.7 mg/dL (8.5-10.1) Total Bilirubin 0.4 mg/dL (0.2-1.0) Aspartate Amino Transferase (AST) 15 U/L (15-37) Alanine Aminotransferase (ALT) 46 U/L (14-59) Alkaline Phosphatase 107 U/L (46-116) Total Protein 7.1 g/dL (6.4-8.2) Albumin 3.5 g/dL (3.4-5.0) Albumin/Globulin Ratio 1.0 (1.0-1.7) Lipase 83 U/L (73-393) Laboratory Tests 10/12/21 14:55 Laboratory Tests 10/12/21 14:55 Vital Signs: Vital Signs Date Time Temp Pulse Resp B/P (MAP) Pulse Ox O2 Delivery O2 Flow Rate FiO2 10/12/21 15:11 78 21 107/74 (85) 96 Room Air 10/12/21 14:13 98.2 98.2 EKG: EKG: Normal sinus rhythm [] Radiology/Procedures: Radiology/Procedures: KUB without signs of obstruction [] Impression: Acute cystitis Course & Med Decision Making: Course & Med Decision Making Pertinent Labs and Imaging studies reviewed. (See chart for details) 35-year-old female seen and examined by myself. Exam quite benign besides mild suprapubic tenderness. Labs drawn as well as urinalysis. Serum labs within normal limits, urinalysis showing signs of urinary tract infection. Reviewed results of blood, urine, and radiological findings with patient. Urinary tract infection diagnosed. Patient will be given a dose of Rocephin. She was given a bolus of normal saline here in the emergency department. Vitals are benign. Patient is nontoxic. Patient agreed with plan of action. Patient will follow up with primary care physician outpatient. All questions answered. Patient hemodynamically stable at the time of discharge. Dragon Disclaimer: Dragon Disclaimer: This electronic medical record was generated, in whole or in part, using a voice recognition dictation system. Departure Departure Impression: Primary Impression: Urinary tract infection Disposition: HOME / SELF CARE / HOMELESS Condition: GOOD Referrals: PARVEEN BADILLO MD (PCP) Patient Instructions: Urinary Tract Infection, [id number] Additional Instructions: May follow-up in the emergency department if you are having new or recurrent symptoms Take all of your antibiotics by mouth Drink plenty of water Scripts Cephalexin (KEFLEX) 500 Mg Capsule 500 MG PO TID for 5 Days, #15 CAP Prov: CARLYN DENNIS MD 10/12/21 CARLYN DENNIS MD October 12, 2021 16:26
[2021-10-12] MEDS ORDERED: KETOROLAC 15 MG/ML VIAL. IVP ONE (16:30)
[2021-10-12] MEDS ORDERED: cefTRIAXone IV Push 1 GM VIAL. IVP ONE (16:30)
== END 2021-10-12 16:38 | disposition home or self-care (01) ==
LOC: ER 14:09
DX: N39.0 Urinary tract infection, site not specified (principal); F31.9 Bipolar disorder, unspecified; G89.29 Other chronic pain; F17.200 Nicotine dependence, unspecified, uncomplicated; Z90.89 Acquired absence of other organs; Z90.49 Acquired absence of other specified parts of digestive tract
CPT/HCPCS: 36415; 74018; 80053; 80307; 81001; 81025; 83690; 85025; 87086; 96361; 96374; 96375; 99285; J0696; J1885; J2405; J7030